=== PATIENT | male | born 1955 | race Caucasian/White ===

== ENCOUNTER 2016-11-15 06:02 | Inpatient (IN) | payer BC ==
--- NOTE | 2016-10-07 16:25 | HP ---
THIS REPORT WILL BE OVER 30 DAYS OLD AT TIME OF ADMISSION REQUIRING AN UPDATED HISTORY PREOPERATIVE HISTORY AND PHYSICAL: DATE OF ADMISSION: 11/15/16 PROCEDURE: The patient is scheduled for right total knee replacement on to be done by Dr. Pierre Wooten. 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 He has tried multiple conservative treatments for this with no effective result and is now prepared to have right total knee replacement. PAST MEDICAL HISTORY: Includes bilateral inguinal hernia repair in 2006; history of acid reflux; mild hyperlipidemia; sleep apnea for which he uses CPAP ; psoriasis; long-standing venous insufficiency in the lower extremities, left greater than right; he also has a history suggestive of mild reactive airways disease. MEDICATIONS: Include: 1. Albuterol inhaler p.r.n. for wheezing. 2. Omeprazole 20mg b.i.d. 3. Ibuprofen p.r.n. for joint pain. 4. MiraLAX 17 g per day p.r.n. ALLERGIES: None. FAMILY HISTORY: Father had Alzheimer's disease and hyperlipidemia. Mother, aortic stenosis and coronary artery disease. Paternal grandmother had diabetes. 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 The patient is a nonsmoker and rarely drinks alcohol. REVIEW OF SYSTEMS: Primarily he is bothered by osteoarthritis symptoms in both knees, chronic lower extremity edema especially on the left, and some mild acid reflux symptoms. He specifically denies any chest pain, palpitation, dizzy spell, or dyspnea on exertion. PHYSICAL EXAMINATION VITAL SIGNS: Blood pressure 130/72, weight 255 pounds, pulse 70 and regular. HEENT: Unremarkable. NECK: No masses. No lymphadenopathy. Normal carotids without bruits. LUNGS: Clear other than very minimal wheezing at the end of forced expiration. HEART: Regular rhythm. Normal S1, S2. No murmurs, gallops, extra sounds, or JVD. ABDOMEN: Soft, nontender. No masses or organomegaly. BACK: No CVA tenderness. EXTREMITIES: He has obvious bony changes of osteoarthritis in the knees. In the left lower extremity, he has changes of chronic venous stasis dermatitis, but no evidence of active skin breakdown. There is 1+ edema at the ankles bilaterally. NEUROLOGIC: Intact. SKIN: Shows some changes of venous stasis dermatitis and scattered lesions of psoriasis mainly involving fingernails. IMPRESSION: Osteoarthritis of the knees. He is an acceptable medical risk for anesthesia and surgery for right total knee replacement. [id number]/[facility] #: [id number] MTDD
--- NOTE | 2016-11-03 15:23 | HP ---
HISTORY AND PHYSICAL: DATE OF OFFICE VISIT: 11/03/16 DATE OF ADMISSION/SURGERY: 11/15/16 ATTENDING: Pierre Wooten MD PROCEDURE: Right total knee arthroplasty. CHIEF COMPLAINT: History and physical for right total knee replacement. 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 The patient has recently failed all conservative treatments. He is now having pain almost constantly and feels that this has been impacting his activities of daily living. He states he has been having trouble walking, doing stairs, and just getting around. He is wishing to pursue elective surgery. The patient also states that he did have a flare-up of gout about a week ago and that had since resolved on its own. PAST MEDICAL HISTORY: 1. Sleep apnea. 2. Untreated psoriasis. 3. Rosacea. 4. GERD. 5. Gout. PAST SURGICAL HISTORY: 1. Vascular repair for left lower extremity ulcer, date unknown, within the past 5 years. 2. Triple hernia repair, date unknown, 10 to 15 years ago. 3. Inguinal hernia repair, date unknown, second grade. MEDICATIONS: 1. Omeprazole 20 mg b.i.d. 2. Probiotic. 3. Multivitamin. 4. Ginkgo biloba. 5. Fish oil. 6. Glucosamine plus chondroitin. 7. Ibuprofen 800 mg. 8. MiraLAX. 9. Metronidazole topical cream. ALLERGIES: No known drug allergies. FAMILY MEDICAL HISTORY: Grandmother on father's side: Diabetes. Father: Myasthenia gravis, hypercholesterolemia, and atrial fibrillation. Mother: Heart disease, hyperlipidemia, TIA, stroke, and hypertension. SOCIAL HISTORY: The patient admits to drinking a bottle of beer a week. The patient denies any history of cigarette smoking or illicit drug use. REVIEW OF SYSTEMS: General: Negative for fevers, chills, or night sweats. No known anesthesia problems. HEENT: Denies any headache, lightheadedness, or syncopal episodes. Integumentary: Denies any abrasions, lesions, or open wounds. Cardiothoracic: Denies any chest pain, palpitations, or edema. Pulmonary: Denies any shortness of breath with exertion, chronic cough, or COPD. GI: Negative for nausea, vomiting, diarrhea, or constipation. : Negative for nocturia, urinary frequency, urinary urgency, history of UTIs, or kidney issues. Musculoskeletal: Positive for right knee and left knee pain. Negative for chronic or intermittent back pain or fractures. Neuro: Negative for paresthesias, numbness, history of seizure, stroke, or epilepsy. Endocrine : Negative for diabetes or thyroid issues. Hematologic: Negative for easy bruising, anemia, excessive bleeding, or history of DVT. PHYSICAL EXAMINATION GENERAL: He is a well-developed, well-nourished 61-year-old male, in no acute distress. HEENT: Normocephalic, atraumatic. Pupils are equal, round, reactive to light and accommodation. Extraocular movements are intact. NECK: Supple with no palpable lymph nodes. PULMONARY: Lungs are clear to auscultation with no wheezes, rales, or rhonchi. CARDIO: Regular rate and rhythm with normal S1, S2. No appreciable S3 or S4. No murmurs, rubs, or gallops. No noticeable edema. ABDOMEN: Positive bowel sounds in all 4 quadrants. Soft and nontender to palpation in all 4 quadrants. NEUROLOGICAL: The patient is awake and oriented x3. Cranial nerves II through XII are grossly intact. MUSCULOSKELETAL: Right lower extremity: The patient is able to fully flex and extend. Full extension is to 0 degrees and flexion to 100 degrees with some discomfort. The patient has no instability with varus or valgus stress test. Strength is 4/5 with pain. The patient has a 2+ dorsalis pedis and posterior tibialis pulses and sensation intact. Left lower extremity: Able to fully extend to 0 degrees and flex to 110 degrees with some discomfort. Again, no instability with varus or valgus stress. Strength is 4/5, posterior tibialis and dorsalis pedis pulses are 2+. Sensation is intact to light touch. DIAGNOSTIC STUDIES/LAB DATA: X-rays of the right knee were obtained today and reviewed by me. [id number] arthritis was noted. IMPRESSION: Arthritis of the right knee. PLAN/RECOMMENDATIONS: The patient is scheduled to undergo a right total knee arthroplasty. He will return to the office 4 weeks postop. He will have aimee removed 2 weeks postop by VNS. A prescription for Percocet 5/325 mg was e-scribed to the patient's pharmacy for postoperative pain management. The patient expressed interest on using only MiraLAX after the procedure to be coupled with his probiotic while he was in the hospital. He will be discharged home unless otherwise needed. HOOD ALBERTS [id number]/[facility] #: [id number] [place]
[~2016-11-15 06:02] MED LIST: Buffered Lidocaine 1% SYR 3ML* 3 ML/SYR SYRINGE INTRADERM ONE
[2016-11-15] MEDS ORDERED: ceFAZolin 2 GM PREMIX (*) 2 GM/50 ML BAG IVPB ONE (06:11)
[2016-11-15] MEDS ORDERED: Bupivacaine 0.25% EPI 200,000* 30 ML SDV ONE ×2 (06:52→06:57)
[2016-11-15] MEDS ORDERED: Midazolam* 1 MG/ML 2 ML VIAL (2 MG) ONE ×2 (07:18→09:14)
[2016-11-15] MEDS ORDERED: fentaNYL* 50 MCG/ML 2 ML VIAL (100 MCG VIAL) ONE (07:18)
[2016-11-15] MEDS ORDERED: Midazolam* 1 MG/ML 5 ML VIAL (5 MG) ONE (07:37)
[2016-11-15] MEDS ORDERED: Morphine PF AMP (0.5MG/ML)* 5 MG/10 ML AMP ONE (07:38)
[2016-11-15] MEDS ORDERED: diPHENhydraMINE IV* 50 MG/ML 1 ml VIAL (BENADRYL) ONE (07:55)
[2016-11-15] MEDS ORDERED: Ondansetron INJ* 2 MG/ML VIAL IV PRN ×3 (08:12→23:46)
[2016-11-15] MEDS ORDERED: DiMENhydriNATE IV* 50 MG/ML VIAL IV PUSH PRN (08:12)
[2016-11-15] MEDS ORDERED: fentaNYL* 50 MCG/ML 2 ML VIAL (100 MCG VIAL) IV PRN (08:12)
[2016-11-15] MEDS ORDERED: Levalbuterol 0.63MG/3ML NEB INH PRN (08:12)
[2016-11-15] MEDS ORDERED: Nalbuphine* 20 MG/ML 1 ML VIAL IV PRN (08:18)
[2016-11-15] MEDS ORDERED: HYDROcodone/ACETAMIN 5-325 MG* 1 TAB PO PRN ×2 (08:18)
[2016-11-15] MEDS ORDERED: PROCHLORPERAZINE INJ 5 MG/ML 2 ML VIAL IV PRN (08:18)
[2016-11-15] MEDS ORDERED: diPHENhydraMINE IV* 50 MG/ML 1 ml VIAL (BENADRYL) IV PRN ×2 (08:18→23:46)
[2016-11-15] MEDS ORDERED: Naloxone* 0.4 MG/ML 1 ML VIAL IV PRN (08:18)
[2016-11-15] MEDS ORDERED: Scopolamine PATCH Remove* 1 NOTE MISC PATCH OFF SCH (09:00)
[2016-11-15] MEDS ORDERED: Scopolamine 1.5 mg* PATCH TRANSDERM SCH (09:00)
[2016-11-15] MEDS ORDERED: Bupivacaine 0.5% SDV PF* 30 ML VIAL ONE (09:07)
[2016-11-15] MEDS ORDERED: Ketorolac INJ* 30 MG/ML 1 ML VIAL ONE (09:08)
[2016-11-15] MEDS ORDERED: Bisacodyl SUPP* 10 MG SUPP PR PRN (10:14)
[2016-11-15] MEDS ORDERED: Morphine INJ* 10 MG/ML 1 ML CARPUJECT IV PRN (10:14)
[2016-11-15] MEDS ORDERED: oxyCODONE/Acetamin 5/325 MG* TAB PO PRN (10:14)
--- NOTE | 2016-11-15 11:02 | RAD ---
HISTORY: Status post right total knee arthroplasty COMPARISONS: November 03, 2016 VIEWS: 2, Frontal and lateral views of the right knee FINDINGS: BONE DENSITY: Normal. BONES: The patient is status post right knee arthroplasty. There is no hardware failure or osteolysis. JOINTS: The patient is status post right knee arthroplasty ALIGNMENT: There is no dislocation. SOFT TISSUES: There is post surgical change to the soft tissues OTHER FINDINGS: None. IMPRESSION: STATUS POST RIGHT KNEE ARTHROPLASTY
[2016-11-15] MEDS ORDERED: Acetaminophen TAB* 325 MG ONE (11:19)
[2016-11-15] MEDS: Acetaminophen TAB* 325 MG PO SCH ×4 (11:20→20:37)
[2016-11-15] MEDS ORDERED: Metronidazole (TOPICAL)(NF) 45 GM TUBE TOPICAL PRN (14:00)
[2016-11-15] MEDS ORDERED: Scopolamine 1.5 mg* PATCH TRANSDERM PRN (14:02)
[2016-11-15] MEDS: ceFAZolin 1 GM in Dextrose (*) 1 GM/50 ML BAG IVPB SCH ×2 (15:12→22:32)
[2016-11-15] MEDS: Ketorolac INJ* 30 MG/ML 1 ML VIAL IV PRN (15:13)
[2016-11-15] MEDS ORDERED: Warfarin TAB(*) 10 MG PO ONE (17:00)
[2016-11-15] MEDS: Polyethylene Glycol 3350* 17 GM PACKET PO PRN (20:34)
[2016-11-15] MEDS: Docusate CAP* 100 MG PO SCH (20:36)
[2016-11-15] MEDS: D5W 1/2 NS 1000 ML BAG* 1,000 ML IV SCH (20:44)
[2016-11-15] MEDS: Magnesium Hydroxide LIQ* 30 ML UDC PO SCH (20:51)
--- NOTE | 2016-11-15 20:56 | OP ---
DATE OF OPERATION: 11/15/16 - ROOM #347 DATE OF : 51 SURGEON: Pierre Wooten MD LABORER PIPELINE: Jayshree Rios RPA ANESTHESIOLOGIST: Dr. Locke ANESTHESIA: Spinal and sedation. PRE-OP DIAGNOSIS: Osteoarthritis, right knee. POST-OP DIAGNOSIS: Osteoarthritis, right knee. OPERATIVE PROCEDURE: Right total knee arthroplasty. INDICATIONS: Mr. Brar is a 61-year-old male with a long history of troubles with osteoarthritis of both of his knees. Anti-inflammatories and injections had worked well previously, but he has been having more and more pain, limitations, and is decreasing what he normally does because of the knees. I discussed with him that a total knee arthroplasty should work well to decrease his pain and improve his function. Risks of surgery such as infection, scar formation, stiffness, DVT, and pulmonary embolism, and hardware failure and the need for revision surgery were some of the risks discussed. He had been declared medically optimized and wished to proceed. ESTIMATED BLOOD LOSS: Less than 50 cc. COMPLICATIONS: None. HARDWARE: Phyllis Persona #9 femur, G tibia, 14-mm polyethylene, 35-mm all polyethylene patellar button. DESCRIPTION OF PROCEDURE: The patient was brought to the OR and spinal anesthesia was introduced. Mendez catheter was placed. Tourniquet was placed over the proximal right thigh and was used during the case. Total tourniquet time would be approximately 75 minutes. Right knee was prepped and then draped. Esmarch was used to exsanguinate the leg and the tourniquet was raised. Midline incision was made beginning 2 to 3 cm above the superior pole of the patella and carried downwards towards the medial side of the tibial tubercle. Incision was carried down through the skin and subcutaneous tissues. Small bleeders encountered were ligated using electrocautery. Extensor mechanism was exposed and a sharp parapatellar arthrotomy was made. Clear yellowish joint fluid was encountered. Fat pad was sharply excised and the soft tissues were sharply elevated from the medial side of the tibia. Patella measured a little over 25 mm in thickness and a nice 10-mm cut was taken. Patella was then easily subluxated laterally and the knee was flexed up. Nice exposure of the distal femoral condyles was obtained. Step drill was used to open the femoral canal and the intramedullary guide was placed. Guide was adjusted until it was parallel with the epicondyles and then pinned into place. Distal femoral cutting guide was then pinned into place and intramedullary guide was removed. Distal femoral cut was taken and it appeared nice cut was obtained. Femur was sized and he sat nicely for a 9. Holes were drilled and using a top drill hole to make sure we did not notch, this did not clear the anterior cortex. This was moved up in 2-mm increments and after moving this up 3 times, the drill came right on the anterior cortex. Cutting guide was then pinned into place and the anterior and posterior femoral cuts followed by the chamfer cuts were taken. Attention was turned to the proximal tibia. Step drill was used to open the tibial canal and the intramedullary guide was placed. Outrigger was assembled and adjusted until it appeared would take 2 mm from the very worn medial side. Cutting guide was pinned into place and a nice tibial cut was obtained. Spacer blocks were placed and 10 and 12 were loose, while the 14 was relatively quite snug. With the 12, however, it could be seen that with bringing him out into full extension that the tibial cut was perfect as the drop sigrid came right along the anterior spine of the tibia but on the femur, I could stand to take another 2 mm from the femoral side. Free hand cut was taken and then with a 14 block, he came out nicely into full extension and easily flexed. Proximal tibia was sized and a G seemed to sit quite nicely. Proximal tibia was drilled and then punched. Osteophytes were taken down from the medial side of the tibia using a rongeur. Attention was returned to the femur. 9 was placed after the chamfer cuts were recut using the cutting guide. Stud holes were also drilled and a notch cut was finished using the notch cut finishing guide. Trial instrumentation was placed and it came out nicely into full extension, flexed nice and easily and was stable throughout. Patellar tracking even without the button was also quite good. Patella sized in the 35 fit best. Osteophytes were taken down from the edges of the patella and holes were drilled. Trial was snapped into place and he had the same wonderful motion and stability. Trial instrumentation was removed and the knee was copiously pulse lavaged. Cement was being prepared. Glass unfortunately had broken so a second batch of cement had to be prepared as well. Tibia followed by femur and patella were all cemented into place. Excess cement was removed and the cement was allowed to harden. He was then trialed with a 14 spacer and again had the same wonderful motion and stability. The knee was again searched for hardened cement and few small pieces were found. The knee was again copiously pulse lavaged and a 14 polyethylene was then snapped into place. The knee was again pulse lavaged and the parapatellar arthrotomy was repaired using interrupted #1 Vicryl sutures. Tourniquet was let down and few small bleeders were ligated using electrocautery. Subcutaneous tissues were approximated with 2-0 Vicryl. Skin was closed using aimee. Sterile dressing and a Cryo/Cuff were applied in the OR. The patient was then awakened and stable on transfer to the recovery room. [id number]/[facility] #: [id number] [place]
[2016-11-15] MEDS ORDERED: Acetaminophen TAB* 325 MG PO PRN (23:46)
[2016-11-15] MEDS ORDERED: Ondansetron TAB* 4 MG PO PRN (23:46)
[2016-11-16] MEDS: oxyCODONE TAB* 5 MG TAB PO PRN ×5 (00:03→21:48)
[2016-11-16] MEDS: Ketorolac INJ* 30 MG/ML 1 ML VIAL IV PRN (03:47)
[2016-11-16] MEDS: D5W 1/2 NS 1000 ML BAG* 1,000 ML IV SCH (04:58)
[2016-11-16] MEDS: ceFAZolin 1 GM in Dextrose (*) 1 GM/50 ML BAG IVPB SCH (06:19)
[2016-11-16] MEDS: oxyCODONE/Acetamin 5/325 MG* TAB PO PRN ×4 (06:34→19:18)
[2016-11-16 06:49] LABS: Hematocrit 35 % (42-52); Hemoglobin 11.8 g/dl (14.0-18.0)
[2016-11-16 07:12] LABS: Calcium 8.1 mg/dL (8.6-10.3); EGFR Non-African American 66.9 (>60); Potassium 4.6 mmol/L (3.5-5.0)
--- NOTE | 2016-11-16 08:54 | PN ---
Progress Note - Progress Note SOAP: Subjective: []Patient seen OOB in chair. Just worked with therapy. Denies SOB, CP or dizziness. Has had on and off hiccups and had trouble sleeping last night. Requesting increase of benadryl to 50 mg. Objective: [] Vital Signs Temp 99.4 F 11/16/16 08:05 Pulse 65 11/16/16 08:05 Resp 18 11/16/16 08:05 BP 135/70 11/16/16 08:05 Pulse Ox 94 11/16/16 08:05 Intake & Output 11/15/16 11/16/16 11/16/16 18:59 06:59 18:59 Intake Total 2450 2833 Output Total 530 350 Balance 1920 2483 Intake: IV Fluids 1850 1965 D5W 1/2 NS 1965 LR 1800 NS 50ML, Cefazolin 2G 50 IVPB 108 Kefzol 108 Oral 600 760 Output: Mendez 500 350 Residual 30 Mendez 16 Fr 30 Laboratory Results - last 24 hr 11/16/16 11/16/16 11/16/16 06:02 06:02 06:02 Hgb 11.8 L Hct 35 L INR (Anticoag Therapy) 1.18 H Sodium 136 Potassium 4.6 Chloride 104 Carbon Dioxide 29 Anion Gap 3 BUN 20 Creatinine 1.11 Est GFR ( Amer) 86.0 Est GFR (Non-Af Amer) 66.9 BUN/Creatinine Ratio 18.0 Glucose 120 H Calcium 8.1 L Right knee PHOEBE is C/D/I calf non tender and soft +DF/PF neuro intact Assessment: []s/p Right total knee arthroplasty POD #1 Plan: []PT- WBAT Coumadin with heparin bridge Benadryl 50 mg po q hs prn insomnia
[2016-11-16] MEDS: Magnesium Hydroxide LIQ* 30 ML UDC PO SCH ×2 (09:06→22:01)
[2016-11-16] MEDS: Omeprazole CAP* 20 MG PO SCH (09:06)
[2016-11-16] MEDS: Docusate CAP* 100 MG PO SCH ×2 (09:06→21:47)
[2016-11-16] MEDS: Vitamin THERAPEUTIC TAB PO SCH (11:09)
[2016-11-16] MEDS: Heparin VIAL(*) 5000 UNITS/ML VIAL (FIVE THOUSAND) SUBCUT SCH ×2 (11:09→21:50)
[2016-11-16] MEDS: Lactobacillus Acidophilu (GG)* 1 CAP CAP PO SCH (11:09)
[2016-11-16] MEDS ORDERED: Warfarin TAB(*) 4 MG PO ONE (17:00)
[2016-11-16] MEDS: diPHENhydraMINE PO* 50 MG PO PRN (22:35)
[2016-11-17] MEDS: oxyCODONE/Acetamin 5/325 MG* TAB PO PRN ×3 (01:47→17:16)
[2016-11-17] MEDS: oxyCODONE TAB* 5 MG TAB PO PRN ×3 (05:21→21:04)
[2016-11-17 07:43] LABS: Hematocrit 36 % (42-52); Hemoglobin 11.9 g/dl (14.0-18.0)
[2016-11-17] MEDS: Vitamin THERAPEUTIC TAB PO SCH (07:46)
[2016-11-17] MEDS: Heparin VIAL(*) 5000 UNITS/ML VIAL (FIVE THOUSAND) SUBCUT SCH (07:46)
[2016-11-17] MEDS: Lactobacillus Acidophilu (GG)* 1 CAP CAP PO SCH (07:46)
[2016-11-17] MEDS: Docusate CAP* 100 MG PO SCH ×2 (07:46→21:04)
[2016-11-17] MEDS: Magnesium Hydroxide LIQ* 30 ML UDC PO SCH ×2 (07:46→21:05)
[2016-11-17] MEDS: Omeprazole CAP* 20 MG PO SCH (07:46)
--- NOTE | 2016-11-17 09:41 | PN ---
Progress Note - Progress Note SOAP: Subjective: []Patient seen at bedside. present. Pain managed. Slept better last night with 50 mg benadryl. Denies, CP, SOB or dizziness. Objective: [] Vital Signs Temp 99.0 F 11/17/16 07:36 Pulse 69 11/17/16 07:36 Resp 18 11/17/16 08:55 BP 126/65 11/17/16 07:36 Pulse Ox 94 11/17/16 08:00 Intake & Output 11/16/16 11/17/16 11/17/16 18:59 06:59 18:59 Intake Total 1198 1040 Output Total 500 1000 0 Balance 698 40 0 Intake: IV Fluids 438 D5W 1/2 NS 438 Oral 760 1040 Output: Urine 250 1000 0 Mendez 250 Laboratory Results - last 24 hr 11/17/16 11/17/16 07:09 07:09 Hgb 11.9 L Hct 36 L INR (Anticoag Therapy) 1.88 H Right knee dressing dry, removed Incision benign without drainage mild right calf ecchymosis, non tender Adrianna's negative +DF/PF neuro intact Assessment: []s/p Right total knee arthroplasty POD #2 Plan: []PT/OT WBAT Right LE Coumadin with heparin bridge, 4mg today Home
[2016-11-17] MEDS ORDERED: Warfarin TAB(*) 4 MG PO ONE (17:00)
[2016-11-17] MEDS: diPHENhydraMINE PO* 50 MG PO PRN (21:04)
[2016-11-17] MEDS: Polyethylene Glycol 3350* 17 GM PACKET PO PRN (21:04)
[2016-11-18] MEDS: oxyCODONE/Acetamin 5/325 MG* TAB PO PRN ×3 (03:10→13:41)
[2016-11-18 07:21] LABS: Hematocrit 36 % (42-52); Hemoglobin 11.8 g/dl (14.0-18.0)
[2016-11-18] MEDS: Omeprazole CAP* 20 MG PO SCH (07:22)
[2016-11-18] MEDS: Docusate CAP* 100 MG PO SCH (08:08)
[2016-11-18] MEDS: Lactobacillus Acidophilu (GG)* 1 CAP CAP PO SCH (08:08)
[2016-11-18] MEDS: Magnesium Hydroxide LIQ* 30 ML UDC PO SCH (08:08)
[2016-11-18] MEDS: Vitamin THERAPEUTIC TAB PO SCH (08:08)
--- NOTE | 2016-11-18 09:49 | PN ---
Progress Note - Progress Note SOAP: Subjective: []Patient seen OOB in chair, doing well. Ready for discharge today. Objective: [] Vital Signs Temp 98.0 F 11/18/16 07:42 Pulse 66 11/18/16 07:42 Resp 18 11/18/16 08:08 BP 128/72 11/18/16 07:42 Pulse Ox 97 11/18/16 08:00 Intake & Output 11/17/16 11/18/16 11/18/16 18:59 06:59 18:59 Intake Total 540 900 Output Total 1300 1050 0 Balance -760 -150 0 Intake: Oral 540 900 Output: Urine 1300 1050 0 Laboratory Results - last 24 hr 11/18/16 11/18/16 07:09 07:09 Hgb 11.8 L Hct 36 L INR (Anticoag Therapy) 1.94 H Right knee dressing with scant old dried bloody drainage on proximal aspect of PHOEBE calf NT and soft neuro intact +DF/PF Assessment: []s/p Right total knee arthroplasty POD#3 Plan: []PT/OT WBAT Discharge home today follow up 3-[address] Wooten
[2016-11-18 12:37] VITALS: BP 121/60
--- NOTE | 2016-11-19 01:26 | DS ---
DISCHARGE SUMMARY: DATE OF ADMISSION: 11/15/16 DATE OF DISCHARGE: 11/18/16 ATTENDING PHYSICIAN: Dr. Pierre Wooten. ADMISSION DIAGNOSIS: Osteoarthritis, right knee. DISCHARGE DIAGNOSIS: Osteoarthritis, right knee. SURGERY PERFORMED: Right total knee arthroplasty. HOSPITAL COURSE: The patient is a 61-year-old male with longstanding history of osteoarthritis in both of his knees. Initially, anti-inflammatories and cortisone injections had worked, but then as time went on, he had less relief from these treatments. Due to the fact that he failed conservative measures, he elected to proceed with surgical intervention and was taken to the operating room under the care of Dr. Pierre Wooten for the aforementioned procedure on the date of 11/15/16. He tolerated the procedure well and he left the operating room in stable condition. Postoperatively, he progressed satisfactorily with physical therapy and occupational therapy goals. He had no postoperative complications other than some mild insomnia. His pain was well managed with oral Percocet and was on heparin and Coumadin postoperatively for DVT prophylaxis. The patient mastered his PT/OT goals and it was felt he was stable medically and orthopedically for discharge to home on the date of . CONDITION ON DISCHARGE: The patient is alert and oriented x3 in no acute distress. He has no calf tenderness. Homans sign is negative. His neurovascular status is intact. His dressings on his right knee have been changed and there is no evidence of increased drainage, erythema, or infection. PLAN: Discharge to home today. He may shower in 2 days. He is sent home with 2 mg Coumadin prescription, recommending he take 4 mg today, 2 mg on Tuesday, 2 mg on Tuesday, and 2 mg on Tuesday. He will have repeat INR drawn Tuesday with subsequent dosages to follow. He has Percocet medication that he picked up prior to his surgery available to him at home. We recommend a followup in roughly [address] Wooten at around the 2-week time frame from this date. He will be seen by home healthcare for which his aimee will be removed. He may shower in 2 days. HOOD BARBOUR [id number]/[facility] #: [id number] [facility]
== END 2016-11-18 14:15 | disposition home or self-care (01) | DRG 302 ==
LOC: AA 06:02 → SSU 10:14
PROVIDERS: ADMIT Orthopaedic Surgery; ATTEND Orthopaedic Surgery
PROC: 0SRC0J9 Replacement of Right Knee Joint with Synthetic Substitute, Cemented, Open Approach (ICD-10-PCS; principal; 2016-11-15 07:30)
DX: M17.0 Bilateral primary osteoarthritis of knee (principal); E78.5 Hyperlipidemia, unspecified; G47.00 Insomnia, unspecified; G47.33 Obstructive sleep apnea (adult) (pediatric); L40.9 Psoriasis, unspecified; K21.9 Gastro-esophageal reflux disease without esophagitis; M10.9 Gout, unspecified; I87.2 Venous insufficiency (chronic) (peripheral); J45.909 Unspecified asthma, uncomplicated; M25.761 Osteophyte, right knee; M54.30 Sciatica, unspecified side; G89.29 Other chronic pain; Z82.3 Family history of stroke; Z83.3 Family history of diabetes mellitus; Z82.69 Family history of other diseases of the musculoskeletal system and connective tissue; Z82.49 Family history of ischemic heart disease and other diseases of the circulatory system; Z82.0 Family history of epilepsy and other diseases of the nervous system; L29.9 Pruritus, unspecified
CPT/HCPCS: 36415; 80048; 85014; 85018; 85610; 88305; 88311; A9270-GY; C1776; J0690; J1200; J1644; J1885; J2250; J3010

== ENCOUNTER 2017-09-15 11:26 | Emergency (ER) | payer BC ==
[2017-09-15 11:40] VITALS: BP 114/68
--- NOTE | 2017-09-15 12:22 | UC ---
Respiratory Complaint HPI - HPI Summary HPI Summary: 62 y/o WM presents with a dry cough and sinus congestion for the last 3 weeks. 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 He has also been using his 's albuterol inhaler, which dose give him good relief - but only for a short time. He denies fever, chills, SOB, chest pain, abdominal pain, n/v/d/c - History of Current Complaint Chief Complaint: UCRespiratory Stated Complaint: SINUS CONGESTED,COUGH,BACK PAIN Time Seen by Provider: 09/15/17 12:21 Hx Obtained From: Patient Onset/Duration: Gradual Onset Timing: Constant Severity Initially: Moderate Severity Currently: Moderate Pain Intensity: 6 Pain Scale Used: 0-10 Numeric Character: Cough: Nonproductive - Allergies/Home Medications Allergies/Adverse Reactions: Allergies Allergy/AdvReac Type Severity Reaction Status Date / Time No Known Allergies Allergy Verified 09/15/17 11:34 PMH/Surg Hx/FS Hx/Imm Hx Previously Healthy: Yes - Surgical History Surgical History: Yes Surgery Procedure, Year, and Place: HIATAL HERNIA REPAIR AT AGE 7. HIATAL HERNIA REPAIR - 10 YEARS AGO knee replaced r - Social History Occupation: Employed Full-time Lives: With Family Alcohol Use: Weekly Alcohol Amount: 3 PER WEEK Substance Use Type: None Smoking Status (MU): Never Smoked Tobacco - Immunization History Most Recent Influenza Vaccination: none Most Recent Tetanus Shot: none Most Recent Pneumonia Vaccination: none Review of Systems Constitutional: Negative Skin: Negative Eyes: Negative ENT: Nasal Discharge, Sinus Congestion, Sinus Pain/Tenderness Respiratory: Cough Cardiovascular: Negative Gastrointestinal: Negative All Other Systems Reviewed And Are Negative: Yes Physical Exam Triage Information Reviewed: Yes Appearance: Well-Appearing, Well-Nourished Vital Signs: Initial Vital Signs Temp 96.3 F 09/15/17 11:36 Pulse 58 09/15/17 11:36 Resp 20 09/15/17 11:36 BP 114/68 09/15/17 11:36 Pulse Ox 100 09/15/17 11:36 Vital Signs Reviewed: Yes Eyes: Positive: Conjunctiva Clear. Negative: Conjunctiva Inflamed, Discharge ENT: Positive: Hearing grossly normal, Pharynx normal, Nasal congestion, Nasal drainage, TMs normal, Sinus tenderness, Uvula midline. Negative: Pharyngeal erythema, TM bulging, TM dull, TM red, Tonsillar swelling, Tonsillar exudate, Muffled voice, Hoarse voice Neck: Positive: Supple, Nontender, No Lymphadenopathy Respiratory: Positive: Chest non-tender, Lungs clear, Normal breath sounds, No respiratory distress, No accessory muscle use Cardiovascular: Positive: RRR, No Murmur, Pulses Normal Neurological: Positive: Alert Psychological: Positive: Age Appropriate Behavior Skin: Negative: rashes UC Diagnostic Evaluation - Laboratory O2 Sat by Pulse Oximetry: 100 Respiratory Course/Dx - Course Course Of Treatment: Suspect sinusitis and bronchitis. Zpak, tessalon, and guaifenesin with codeine at bedtime. - Differential Dx/Diagnosis Differential Diagnosis/HQI/PQRI: Bronchitis, Influenza, Lower Resp Infection, Sinusitis Provider Diagnoses: Bronchitis. Sinusitis Discharge - Discharge Plan Condition: Stable Disposition: HOME Prescriptions: Azithromycin TAB* [Zithromax TAB (Z-MICKIE) 250 mg #6 tabs] 2 tab PO .TODAY, THEN 1 DAILY #1 mickie Benzonatate CAP* [Tessalon 100 MG CAP*] 100 mg PO TID PRN #30 cap PRN Reason: Cough Guaifenesin-Codeine [G Tussin AC 100-10 mg/5Ml] 5 ml PO BEDTIME PRN #35 ml MDD 5mL PRN Reason: Cough Patient Education Materials: Acute Bronchitis (ED) Referrals: Mariely Espinal MD [Primary Care Provider] - Additional Instructions: If you develop a fever, shortness of breath, chest pain, new or worsening symptoms - please call your PCP or go to the ED.
== END 2017-09-15 13:15 | disposition home or self-care (01) ==
LOC: UCEAST 11:26
DX: J40 Bronchitis, not specified as acute or chronic (principal); J32.9 Chronic sinusitis, unspecified; Z72.89 Other problems related to lifestyle
CPT/HCPCS: 99212; G0463

== ENCOUNTER 2017-12-26 09:10 | Inpatient (IN) | payer BC ==
--- NOTE | 2017-12-20 08:13 | HP ---
H&P (Free Text) History and Physical: CC: Left knee pain. HPI: The patient is a pleasant 62-year-old male who underwent a right total knee replacement on 11/15/2016. He has been doing well from this, however has had increased pain on the left side and has failed conservative treatments such as NSAIDs, physical therapy and injections. He has elected to undergo a left total knee arthroplasty on 12/26/[address] Wooten. MEDICATIONS: Ibuprofen 800 mg b.i.d. ALLERGIES: No known drug allergies. PAST MEDICAL HISTORY: 1) Osteoarthritis. 2) Psoriasis. 3) GERD. PAST SURGICAL HISTORY: 1) Right total knee arthroplasty on 11/15/2016. 2) Inguinal hernia repair x2. 3) Vein stripping, left leg, approximately five years ago. ROS: GENERAL: Denies weight gain, weight loss, lightheadedness, dizziness, difficulty with anesthesia. Positive for intentional weight loss. HEENT: No headaches, seizures, stroke, or history of epilepsy. CARDIAC: Denies chest pain, heart palpitations, history of MIs. LUNGS: Denies cough, COPD, asthma. GI: Denies nausea, vomiting, constipation or diarrhea. : Negative for urinary frequency or urgency, difficulty with urination, urinary tract infections, or kidney stones. INTEGUMENT: No difficulty with wound healing. No open wounds or sores. NEUROLOGIC: Denies any numbness or tingling. ENDOCRINE: Negative for diabetes or thyroid disorders. HEMATOLOGIC: No history of anemia or DVT. INFECTIOUS DISEASE: Denies MRSA, hepatitis C, or HIV. MUSCULOSKELETAL: Positive for general arthritis. Positive for left knee pain. Date: 12/14/2017 Was the patient queried about smoking behavior? Yes No Does the patient currently smoke? Smoking: Patient has never smoked. Vitals: Ht: 73.75" Wt: 250lb BP: 116/70 Resp: 20 T: 97.7 Pain Level: 0 BMI: 32.3 EXAM: GENERAL: Well appearing, in no acute distress, alert and oriented, appears stated age. CARDIAC: Regular rate and rhythm. No murmurs, gallops or rubs. LUNGS: Clear to auscultation bilaterally. No crackles, rhonchi or wheezes. ABDOMEN: Soft, nontender, nondistended. Negative CVA tenderness bilaterally. HEENT: Normocephalic, atraumatic. Trachea midline. MUSCULOSKELETAL: Left knee with range of motion 0-130 degrees with +1 pitting edema of the lower extremities. Negative Homans sign. Positive dorsiflexion and plantar flexion bilaterally. Sensation intact to light touch in bilateral lower extremities. STUDIES: X-rays of the left knee obtained on 11/16/2016, show moderate to advanced osteoarthritis around the medial and patellar joint spaces of the left knee. ASSESSMENT: End-stage osteoarthritis of the left knee. PLAN: The patient has elected to undergo a left total knee arthroplasty with Dr. Wooten on 12/26/2017. He will be following up with his primary doctor for medical clearance later this week. He had no questions or concerns in regards to the procedure; however, he is requesting a longer-acting pain medicine at night to help with sleeping as he had difficulty with this last time. Percocet was sent for the patient for short-acting medication during the day. The patient will likely recover at his home. Assessment #1: Hx M17.12 Unilateral primary osteoarthritis, left knee Care Plan: Follow Up : Follow up:
[~2017-12-26 09:10] MED LIST changes: +Acetaminophen IV 1GM/100ML * 1,000 MG/100 ML VIAL IVPB ONE; +Buffered Lidocaine 0.9% SYRIN* 5 ML/SYR SYRINGE INTRADERM ONE; -Buffered Lidocaine 1% SYR 3ML* 3 ML/SYR SYRINGE INTRADERM ONE; +Dexamethasone IV* 4 MG/ML 1 ML (4 MG) IV SLOW PU ONE; +Famotidine TAB* 20 MG PO ONE; +Gabapentin CAP(*) 300 MG PO ONE; +celeCOXIB CAP* 200 MG PO ONE
--- OUTSIDE RECORDS SUMMARY | 2017-12-26 09:20 | XMS REPORT ---
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 Active Onset: 02/02/2017 Aftercare following joint replacement Pierre Wooten M.D. Active surgery Social History Type Date Description Comments Smoking Patient has never smoked Allergies, Adverse Reactions, Alerts Date Description Reaction Status Severity Comments 04/05/2013 NKDA active Medications Medication Date Status Form Strength Qnty SIG Indications Ordering Provider Percocet Active Tablets 5-325mg 60tabs 1-2 tablets Pierre 018 by mouth Je, every 4-6 M.D. hours as needed for pain Warfarin Active Tablets 2mg 60tabs take as Pierre Montelogno 018 directed by Je, office do M.D. not take until after surgery Ibuprofen 200 00/00/0 Active Tablets 200mg 400-600mg Unknown 000 every 6 hours as needed for pain. Warfarin Hx Tablets 2mg 60tabs take as Pierre Montelongo 017 - directed by Je, office MLena 017 Percocet Hx Tablets 5-325mg 60tabs 1 tab by Pierre Lindsey - mouth tid Je, as needed M.Hoa 018 for pain. No Active Hx Pierre Medications 015 - Je, Caro 017 Medications Administered in Office Medication Date Status Form Strength Qnty SIG Indications Ordering Provider Synvisc Or Administered Injection Skye Synvisc-One 015 [place], Injection 1 RPA-C MG Synvisc Or Administered Injection Skye Synvisc-One 015 Alexander, Injection 1 RPA-C MG Synvisc Or Administered Injection Pierre Synvisc-One 015 Je, Injection 1 M.DApple MG Depomedrol Administered Injection Alevism HApple 80MG 014 Shani Iglesias Depomedrol Administered Injection Pierre 80MG Lorna Wooten M.D. Depomedrol Administered Injection Pierre 80MG Lorna Wooten M.D. Vital Signs Date Vital Result Comment 12/14/2017 Height 73.75 inches 6'1.75" Weight 250.00 lb BP Systolic 116 mmHg BP Diastolic 70 mmHg Respiratory Rate 20 /min Body Temperature 97.7 F Pain Level 0 BMI (Body Mass Index) 32.3 kg/m2 11/16/2017 Height 73.75 inches 6'1.75" Heart Rate 57 /min BP Systolic 110 mmHg BP Diastolic 78 mmHg Respiratory Rate 16 /min Body Temperature 97.3 F Pain Level 2 02/02/2017 Height 73.75 inches 6'1.75" Weight 250.00 lb Heart Rate 65 /min BP Systolic 123 mmHg BP Diastolic 78 mmHg Body Temperature 97.2 F BMI (Body Mass Index) 32.3 kg/m2 01/05/2017 Height 74 inches 6'2" Weight 246.00 lb BP Systolic 104 mmHg BP Diastolic 70 mmHg Respiratory Rate 16 /min Body Temperature 97.2 F Pain Level 2 BMI (Body Mass Index) 31.6 kg/m2 11/03/2016 Height 74 inches 6'2" Weight 246.00 lb Heart Rate 76 /min BP Systolic Sitting 138 mmHg BP Diastolic Sitting 86 mmHg Respiratory Rate 16 /min Body Temperature 97.3 F Pain Level 4 BMI (Body Mass Index) 31.6 kg/m2 10/06/2016 Height 74 inches 6'2" Weight 250.00 lb BMI (Body Mass Index) 32.1 kg/m2 10/08/2015 Height 74 inches 6'2" Weight 250.00 lb Pain Level 4 with activity BMI (Body Mass Index) 32.1 kg/m2 08/20/2015 Height 74 inches 6'2" Weight 250.00 lb Pain Level 0 BMI (Body Mass Index) 32.1 kg/m2 08/13/2015 Height 74 inches 6'2" Weight 250.00 lb Pain Level 3 BMI (Body Mass Index) 32.1 kg/m2 08/06/2015 Height 74 inches 6'2" Weight 250.00 lb Pain Level 3 BMI (Body Mass Index) 32.1 kg/m2 07/09/2015 Height 74 inches 6'2" Weight 250.00 lb Pain Level 3 BMI (Body Mass Index) 32.1 kg/m2 11/02/2013 Heart Rate 59 /min BP Systolic 119 mmHg BP Diastolic 83 mmHg 04/05/2013 Height 74 inches 6'2" Weight 250.00 lb Heart Rate 55 /min BP Systolic 132 mmHg BP Diastolic 89 mmHg BMI (Body Mass Index) 32.1 kg/m2 Results Test Date Test Result H/L Range Note CBC No Diff 11/03/2016 White Blood Count 8.5 10^3/uL 3.5-10.8 1 Red Blood Count 4.56 10^6/uL 4.0-5.4 1 Hemoglobin 14.1 g/dL 14.0-18.0 1 Hematocrit 43 % 42-52 1 Mean Corpuscular Volume 95 fL High 80-94 1 Mean Corpuscular Hemoglobin 31 pg 27-31 1 Mean Corpuscular HGB Conc 32 g/dL 31-36 1 Red Cell Distribution Width 14 % 10.5-15 1 Platelet Count 259 10^3/uL 150-450 1 Mean Platelet Volume 9 um3 7.4-10.4 1 Inr/Protime 11/03/2016 Inr 0.86 Low 0.89-1.11 1 Laboratory test finding 11/03/2016 Partial Thrombo 32.4 seconds 26.0- 36.3 1, 2 Time PTT Comp Metabolic Panel 11/03/2016 Sodium 139 mmol/L 133-145 1 Potassium 4.8 mmol/L 3.5-5.0 1 Chloride 104 mmol/L 101-111 1 Co2 Carbon Dioxide 31 mmol/L 22-32 1 Anion Gap 4 mmol/L 2-11 1 Glucose 84 mg/dL 70-100 1 Blood Urea Nitrogen 28 mg/dL High 6-24 1 Creatinine 1.03 mg/dL 0.67-1.17 1 BUN/Creatinine Ratio 27.2 High 8-20 1 Calcium 9.4 mg/dL 8.6-10.3 1 Total Protein 6.8 g/dL 6.4-8.9 1 Albumin 4.1 g/dL 3.2-5.2 1 Globulin 2.7 g/dL 2-4 1 Albumin/Globulin Ratio 1.5 1-3 1 Total Bilirubin 1.00 mg/dL 0.2-1.0 1 Alkaline Phosphatase 51 U/L 34-104 1 Alt 31 U/L 7-52 1 Ast 30 U/L 13-39 1 Egfr Non- 72.9 >60 1 Egfr 93.8 >60 1, 3 Urinalysis Profile 11/03/2016 Urine Color Yellow 1 Urine Appearance Clear 1 Urine Specific Sanford 1.030 1.010-1.030 1 Urine pH 5.0 5-9 1 Urine Urobilinogen Negative Negative 1 Urine Ketones Negative Negative 1 Urine Protein Negative Negative 1 Urine Leukocytes Trace Negative 1 Urine Blood Negative Negative 1 * * Negative 1, 4 Urine Nitrite Negative Negative 1 Urine Bilirubin Negative Negative 1 Urine Glucose Negative Negative 1 Urine White Blood Cell Trace(0-5/hpf) Absent 1 Urine Red Blood Cell Trace(0-2/hpf) Absent 1 Urine Bacteria Absent Absent 1 Urine Squamous Epithelial Cell Present Absent 1 Type & Screen 11/03/2016 Patient Blood Type A Positive 1 Antibody Screen NEGATIVE 1 Urine Culture And Sensitivities 11/03/2016 Urine Culture SEE RESULT BELOW 1, 5 1 AA 11/15 2 AA 11/15 3 Because ethnic data is not always readily available, this report includes an eGFR for both -Americans and non- Americans. The National Kidney Disease Education Program (NKDEP) does not endorse the use of the MDRD equation for patients that are not between the ages of 18 and 70, are , have extremes of body size, muscle mass, or nutritional status, or are non- or non-. According to the National Kidney Foundation, irrespective of diagnosis, the stage of the disease is based on the level of kidney function: Stage Description GFR(mL/min/1.73 m(2)) 1 Kidney damage with normal or decreased GFR 90 2 Kidney damage with mild decrease in GFR 60-89 3 Moderate decrease in GFR 30-59 4 Severe decrease in GFR 15-29 5 Kidney failure <15 (or dialysis) 4 *Ascorbic acid is present which may interfere with detection of blood. 5 SEE RESULT BELOW Name: SEVERIANO CLARK : [address]: Pierre Wooten MD Acct: [id number] Unit: [id number] AGE: 61 Location: [facility] Re11/03/16 SEX: M Status: REG REF SPEC: [id number] CHANELLE: 11/03/16-[address] [facility] [address]: Pierre Wooten MD REQ: [id number] RECD: 11/03/16 STATUS: DOV JONES DR: Thang Tinsley MD _ SOURCE: URINE SPDESC: ORDERED: Urine Culture COMMENTS: HUMBERTO 11/15 QUERIES: Urine Source: Clean Catch Procedure Result Reported Site Urine Culture Final 11/04/16- 1302 ML No Growth (<1,000 CFU/mL) * ML - MAIN LAB (PSC1) . END OF REPORT * ML=Testing performed at Main Lab DEPARTMENT OF PATHOLOGY, [address] [place] [address] Clark Jerry M.D. Director [facility] # [id number] Procedures Date CPT Code Description Status 11/15/2016 71521 TKR Total Knee Replacement Completed 11/15/2016 16680 TKR Total Knee Replacement Completed 11/03/2016 48997 EKG, Interpretation Only Completed 08/20/2015 Inject/Drain Joint/Bursa Major Completed 08/13/2015 Inject/Drain Joint/Bursa Major Completed 08/06/2015 Inject/Drain Joint/Bursa Major Completed 11/02/2013 Inject/Drain Joint/Bursa Major Completed 04/05/2013 Inject/Drain Joint/Bursa Major Completed 04/05/2013 Inject/Drain Joint/Bursa Major Completed Encounters Type Date Location Provider CPT E/M Dx Office Visit 11/16/2017 [facility] Wooten M.D. 89386 Z47.1 1:45p Sadia Z96.651 M17.12 Office Visit 10/06/2016 2:45p [facility] Wooten 00708 M17.11 Sadia Elizondo M17.0 Office Visit 10/08/2015 8:00a [facility] Wooten M.D. 35313 M17.12 [facility] Office Visit 07/09/2015 10:00a [facility] Pierre Wooten M.D. 18078 M17.0 [facility] Office Visit 11/02/2013 8:45a [facility] Yehuda Marquez 64947 715.16 [facility] Office Visit 04/05/2013 8:45a [facility] Pierre Wooten M.D. 87800 715.16 [facility] Office Visit 12/06/2012 9:00a [facility] Pierre Wooten M.D. 63424 715.16 [facility] Plan of Care Future Appointment(s):12/26/2017 10:30 am - HOOD Boyce at [facility]12/26/2017 10:30 am - Pierre Wooten M.D. at [facility]
[2017-12-26] MEDS ORDERED: Dexamethasone IV* 4 MG/ML 1 ML (4 MG) ONE (09:45)
[2017-12-26] MEDS ORDERED: ceFAZolin 2 GM PREMIX (*) 2 GM/50 ML BAG IVPB ONE (09:46)
[2017-12-26] MEDS ORDERED: Famotidine TAB* 20 MG ONE (09:46)
[2017-12-26] MEDS ORDERED: Acetaminophen IV 1GM/100ML * 100 ML ONE (09:46)
[2017-12-26] MEDS ORDERED: celeCOXIB CAP* 100 MG ONE (09:46)
[2017-12-26] MEDS ORDERED: Gabapentin CAP(*) 300 MG ONE (09:46)
[2017-12-26] MEDS ORDERED: Ondansetron INJ* 2 MG/ML VIAL ONE (10:21)
[2017-12-26] MEDS ORDERED: Midazolam* 1 MG/ML 10 ML VIAL (10 MG) ONE (10:21)
[2017-12-26] MEDS ORDERED: fentaNYL* 50 MCG/ML 2 ML VIAL (100 MCG VIAL) ONE (10:21)
[2017-12-26] MEDS ORDERED: Propofol* 10 MG/ML 20 ML BTL IV PUSH ONE ×2 (10:21→12:31)
[2017-12-26] MEDS ORDERED: Bupivacaine 0.5%* 50 ML VIAL ONE ×3 (10:34→11:09)
[2017-12-26] MEDS ORDERED: Lidocaine 1% MPF wEPI 200,000* 30 ML SDV ONE ×2 (10:34→11:09)
[2017-12-26] MEDS ORDERED: Morphine PF AMP (0.5MG/ML)* 5 MG/10 ML AMP ONE (10:44)
[2017-12-26] MEDS ORDERED: Ondansetron INJ* 2 MG/ML VIAL IV PRN (11:56)
[2017-12-26] MEDS ORDERED: Scopolamine 1.5 mg* PATCH TRANSDERM PRN (11:56)
[2017-12-26] MEDS ORDERED: fentaNYL* 50 MCG/ML 2 ML VIAL (100 MCG VIAL) IV PRN (11:56)
[2017-12-26] MEDS ORDERED: HYDROmorphone INJ* 1 MG/ML CARPUJECT SYRINGE IV PRN (11:56)
[2017-12-26] MEDS ORDERED: Nalbuphine* 20 MG/ML 1 ML VIAL IV PRN ×2 (11:56)
[2017-12-26] MEDS ORDERED: DiMENhydriNATE IV* 50 MG/ML VIAL IV PUSH PRN (11:56)
[2017-12-26] MEDS ORDERED: oxyCODONE TAB* 5 MG TAB PO PRN (11:56)
[2017-12-26] MEDS ORDERED: Naloxone* 0.4 MG/ML 1 ML VIAL IV PRN ×2 (11:56)
[2017-12-26] MEDS ORDERED: Bisacodyl SUPP* 10 MG SUPP PR PRN (13:35)
[2017-12-26] MEDS ORDERED: Acetaminophen TAB* 325 MG PO PRN (13:35)
[2017-12-26] MEDS ORDERED: Cyclobenzaprine TAB* 10 MG PO PRN (13:35)
[2017-12-26] MEDS ORDERED: Magnesium Hydroxide LIQ* 30 ML UDC PO PRN (13:35)
[2017-12-26] MEDS ORDERED: ceFAZolin 1 GM in Dextrose (*) 1 GM/50 ML BAG IVPB SCH (14:00)
--- NOTE | 2017-12-26 14:26 | RAD ---
INDICATION: Postoperative left knee arthroplasty COMPARISON: November 16, 2017 TECHNIQUE: Portable AP and crosstable lateral views were obtained. FINDINGS: There is left knee arthroplasty. Both tibial and femoral components appear well seated. There is no overlying cooling jacket. There are anterior skin aimee. IMPRESSION: POSTOPERATIVE LEFT TOTAL KNEE ARTHROPLASTY.
[2017-12-26] MEDS: D5W 1/2 NS 1000 ML BAG* 1,000 ML IV SCH (16:26)
[2017-12-26] MEDS ORDERED: Warfarin TAB(*) 10 MG PO ONE (17:30)
[2017-12-26] MEDS: ceFAZolin 1 GM in Dextrose (*) 1 GM/50 ML BAG IVPB SCH (20:23)
[2017-12-26] MEDS: Heparin VIAL(*) 5000 UNITS/ML VIAL (FIVE THOUSAND) SUBCUT SCH (20:46)
[2017-12-26] MEDS: Magnesium Hydroxide LIQ* 30 ML UDC PO SCH (20:47)
[2017-12-26] MEDS: Docusate CAP* 100 MG PO SCH (20:47)
--- NOTE | 2017-12-27 01:48 | OP ---
DATE OF OPERATION: 12/26/17 - ROOM #343 DATE OF : 51 ATTENDING SURGEON: Pierre Wooten MD. CYLINDER PRESS FEEDER: Franci Benz RPA. ANESTHESIA: Spinal, sedation. PRE-OP DIAGNOSIS: Osteoarthritis, left knee. POST-OP DIAGNOSIS: Osteoarthritis, left knee. OPERATIVE PROCEDURE: Left total knee arthroplasty. ESTIMATED BLOOD LOSS: Less than 50 cc. COMPLICATIONS: None. HARDWARE: Phyllis Persona #9 femur, F tibia 10 mm polyethylene, 35 mm patella. SUMMARY: Mr. Brar is a 62-year-old male who had previously undergone a right total knee arthroplasty. He had done well, getting back to work and all activities. He had very similar end-stage osteoarthritic changes in his left knee where it is bone on bone, and the left knee has been giving him more pain and troubles recently. He had presented to the office very interested in setting up a left total knee arthroplasty. Risks of surgery such as infections , scar formation, stiffness, DVT, pulmonary embolism, hardware failure, and continued pain were some of the risks discussed. He had been declared medically optimized and wished to proceed. DESCRIPTION OF PROCEDURE: The patient was brought to the OR and spinal anesthesia with Duramorph was introduced. Mendez catheter was then placed. Left leg was prepped and then draped. Franci Benz RPA, was present for the entirety of the case, and the case could not have been done without her. After the knee was prepped and draped, Esmarch was used to exsanguinate the leg and the tourniquet was raised. Midline incision was made beginning just medial to the tibial tubercle and carried up along the center of the knee to about 8 cm superior to the patella. Incision was carried down through the skin and subcutaneous fat. Small bleeders encountered were ligated using electrocautery. Extensor mechanism was exposed and a sharp parapatellar arthrotomy was made. Quite a bit of clear yellowish joint fluid was encountered. Fat pad was sharply excised and the soft tissues were sharply elevated from the medial side of the tibia. Patella measured 25 mm in thickness and a nice 10 mm cut was taken. Patella was then easily subluxated laterally. The knee was flexed up. Quite a few osteophytes were clearly evident and these were taken down using the rongeur. Step drill was used to open the femoral canal and intramedullary guide was placed. This had been set for 2 mm of resection along with 2 degrees as I had to recut the femur several times when I had done his right knee. Distal femoral guide was pinned into place and the intramedullary guide was then removed. Femoral cut was taken and it appeared a nice cut was obtained. Femur sized right on an 8. Holes were drilled and 8 was placed, but when the superior hole was run, it was clear that I would notch, so this was moved up twice until the drill came out right on the top side of the cortex. Anterior and posterior femoral cuts followed by chamfer cuts were taken. Attention was turned to the tibia. Step drill was used to open the tibial canal and the intramedullary guide was placed. Outrigger was placed and adjusted until it appeared it would take 2 mm from the worn medial side. Proximal tibial cut was then taken and spacer blocks were used. With the spacer block, it could be seen that on the medial side he was good, but there was very specific play. The tibial cut itself was perfect where the drop sigrid came right down the shaft of the tibia. Therefore, I had a recut on the femoral side. Again, two cuts were taken, as the first time I did not take enough bone from the medial side and then second time enough bone was taken such that the spacer block with a 12 sat very nicely. I was less thrilled about resecting more distal femur. Chamfer cuts were recut using the 9 cutting block as this would give back some of what I had taken. Tibia was trialed with an F and this sat very nicely. This was pinned into place and proximal tibia was drilled and then punched. Similarly, on the femur side, notch cut was finished using the trial and the stud holes were drilled. With a 10 polyethylene it came out nicely into full extension, flexed easily, and was stable throughout. I was very pleased on how this came together. Patella measured at 35 and holes were drilled and a trial was snapped into place. Again, patella tracking was perfect. Trial instrumentation was removed and the knee was copiously pulse lavaged. Cement was being prepared. Tibia, followed by femur and patella were all cemented into place. Excess cement was removed and the cement was allowed to harden. Once the cement had hardened, knee was copiously pulse lavaged. The knee was again trialed with a 10 polyethylene. He had the same wonderful motion and stability. Knee was again pulse lavaged and posterior capsule was injected with 20 cc of a 50:50 mixture of 0.5% Marcaine mixed with 1% lidocaine with epinephrine. Similarly additional 10 cc were placed into each of the gutters and 10 cc into the pouch. The 10 polyethylene was then snapped into place. Knee was again copiously pulse lavaged and the parapatellar arthrotomy was repaired using interrupted #1 Vicryl sutures. Tourniquet was let down and no significant bleeding was encountered. Subcutaneous tissues were approximated with 2-0 Vicryl. Skin was closed using aimee. Sterile dressing and Cryo/Cuff were applied in the OR. The patient was then awakened and stable on transfer to the recovery room. [id number]/CPS #: [id number] MTDD
[2017-12-27] MEDS: D5W 1/2 NS 1000 ML BAG* 1,000 ML IV SCH (02:39)
[2017-12-27] MEDS ORDERED: diPHENhydraMINE IV* 50 MG/ML 1 ml VIAL (BENADRYL) IV PRN (03:01)
[2017-12-27] MEDS ORDERED: oxyCODONE/Acetamin 5/325 MG* TAB PO PRN (03:01)
[2017-12-27] MEDS ORDERED: Morphine INJ* 2 MG/ML 1 ML CARPUJECT IV PRN (03:01)
[2017-12-27] MEDS ORDERED: Morphine VIAL* 4 MG/ML VIAL (1 ml vial) IV PRN (03:01)
[2017-12-27] MEDS ORDERED: Ondansetron TAB* 4 MG PO PRN (03:01)
[2017-12-27] MEDS ORDERED: Ondansetron INJ* 2 MG/ML VIAL IV PRN (03:01)
[2017-12-27] MEDS ORDERED: diPHENhydraMINE PO* 25 MG PO PRN (03:01)
[2017-12-27] MEDS: ceFAZolin 1 GM in Dextrose (*) 1 GM/50 ML BAG IVPB SCH ×2 (04:05→11:28)
[2017-12-27 06:28] LABS: Hematocrit 35 % (42-52); Hemoglobin 11.9 g/dl (14.0-18.0); Mean Platelet Volume 9.4 um3 (7.4-10.4); Platelet Count 219 10^3/ul (150-450)
[2017-12-27 06:41] LABS: EGFR Non-African American 89.5 (>60)
[2017-12-27 06:47] LABS: INR 1.08 (0.77-1.02)
[2017-12-27] MEDS: oxyCODONE/Acetamin 5/325 MG* TAB PO PRN ×4 (07:25→23:24)
[2017-12-27] MEDS: Docusate CAP* 100 MG PO SCH ×2 (08:59→21:33)
[2017-12-27] MEDS: Magnesium Hydroxide LIQ* 30 ML UDC PO SCH ×2 (08:59→21:33)
[2017-12-27] MEDS: Heparin VIAL(*) 5000 UNITS/ML VIAL (FIVE THOUSAND) SUBCUT SCH ×2 (08:59→21:33)
[2017-12-27] MEDS ORDERED: Polyethylene Glycol 3350* 17 GM PACKET PO PRN (09:29)
--- NOTE | 2017-12-27 09:37 | PN ---
Progress Note - Progress Note Date of Service: 12/27/17 SOAP: Subjective: []Patient seen OOB in chair. He feels well with 2-3/10 pain of his left knee. Denies chest pain, shortness of breath, dizziness, lightheadedness, nausea or vomiting. His BP has been low to 93/58 this morning but he has not been symptomatic. He ate breakfast and is drinking well. Objective: [] Vital Signs Temp 98.1 F 12/27/17 07:25 Pulse 47 12/27/17 07:25 Resp 16 12/27/17 07:32 BP 93/58 12/27/17 07:25 Pulse Ox 99 12/27/17 08:21 Intake & Output 12/26/17 12/27/17 12/27/17 18:59 06:59 18:59 Intake Total 1600 3019 Output Total 250 1675 Balance 1350 1344 Weight 246 lb 6.4 oz Intake: IV Fluids 1600 975 D5W 1/2 NS 975 LR 1600 IVPB 54 ABX - CEFAZOLIN 54 Oral 1989 Output: Mendez 200 1675 Estimated Blood Loss 50 Other: # Bowel Movements 0 Laboratory Last Values Hgb 11.9 g/dl (14.0-18.0) L 12/27/17 05:38 Hct 35 % (42-52) L 12/27/17 05:38 Plt Count 219 10^3/ul (150-450) 12/27/17 05:38 MPV 9.4 um3 (7.4-10.4) 12/27/17 05:38 INR (Anticoag Therapy) 1.08 (0.77-1.02) H 12/27/17 05:38 Sodium 137 mmol/L (139-145) L 12/27/17 05:38 Potassium 4.0 mmol/L (3.5-5.0) 12/27/17 05:38 Chloride 107 mmol/L (101-111) 12/27/17 05:38 Carbon Dioxide 24 mmol/L (22-32) 12/27/17 05:38 Anion Gap 6 mmol/L (2-11) 12/27/17 05:38 BUN 12 mg/dL (6-24) 12/27/17 05:38 Creatinine 0.86 mg/dL (0.67-1.17) 12/27/17 05:38 Est GFR ( Amer) 115.1 (>60) 12/27/17 05:38 Est GFR (Non-Af Amer) 89.5 (>60) 12/27/17 05:38 BUN/Creatinine Ratio 14.0 (8-20) 12/27/17 05:38 Glucose 123 mg/dL (70-100) H 12/27/17 05:38 Calcium 8.1 mg/dL (8.6-10.3) L 12/27/17 05:38 General: Well appearing, NAD. Calm and cooperative. LLE: Dressing of left knee CDI without surrounding erythema. Thigh is soft and nontender. DF/PF intact. Sensation intact and capillary refill less than two seconds distally. DP 1+. Hyperpigmentation from healed venous stasis ulcer just superior to medial malleolus BL LE: Calves supple and nontender without erythema, edema or palpable cords. Assessment: []POD 1 s/p left total knee arthroplasty, Dr Wooten 12/26 Plan: []WBAT PT/OT Lovenox, coumadin 6 mg today Restart home medications of prilosec and miralax per patient request, refuses other bowel meds
[2017-12-27] MEDS: oxyCODONE TAB* 5 MG TAB PO PRN ×3 (10:35→21:31)
[2017-12-27] MEDS ORDERED: Warfarin TAB(*) 6 MG PO ONE (17:00)
[2017-12-27] MEDS: Omeprazole CAP* 20 MG PO SCH (21:32)
[2017-12-28] MEDS: oxyCODONE TAB* 5 MG TAB PO PRN ×4 (01:24→16:06)
[2017-12-28] MEDS: oxyCODONE/Acetamin 5/325 MG* TAB PO PRN ×3 (03:29→13:03)
[2017-12-28 07:14] LABS: Hematocrit 34 % (42-52); Hemoglobin 11.7 g/dl (14.0-18.0); Mean Platelet Volume 9.2 um3 (7.4-10.4); Platelet Count 211 10^3/ul (150-450)
[2017-12-28] MEDS: Magnesium Hydroxide LIQ* 30 ML UDC PO SCH (08:34)
[2017-12-28] MEDS: Docusate CAP* 100 MG PO SCH (08:34)
[2017-12-28] MEDS: Omeprazole CAP* 20 MG PO SCH (08:36)
[2017-12-28] MEDS: Heparin VIAL(*) 5000 UNITS/ML VIAL (FIVE THOUSAND) SUBCUT SCH (09:15)
--- NOTE | 2017-12-28 12:40 | PN ---
Progress Note - Progress Note Date of Service: 12/28/17 SOAP: Subjective: []Patient seen at bedside. He is feeling well with 2/10 pain when alternating 2 tabs percocet 5/325 mg q 4 hours with oxycodone 10 mg Q 4 hours. He is very concerned about pain control but otherwise feels well. Denies CP, SOB, fever, chills, nausea. Objective: [] Vital Signs Temp 98.9 F 12/28/17 11:03 Pulse 61 12/28/17 11:03 Resp 18 12/28/17 12:35 BP 131/60 12/28/17 11:03 Pulse Ox 97 12/28/17 11:03 Intake & Output 12/27/17 12/28/17 12/28/17 18:59 06:59 18:59 Intake Total 0 1120 480 Output Total 300 Balance 0 820 480 Intake: Oral 0 1120 480 Output: Urine 300 Other: Estimated Void Medium Large Medium # Bowel Movements 0 # Voids 1 3 Laboratory Last Values Hgb 11.7 g/dl (14.0-18.0) L 12/28/17 06:06 Hct 34 % (42-52) L 12/28/17 06:06 Plt Count 211 10^3/ul (150-450) 12/28/17 06:06 MPV 9.2 um3 (7.4-10.4) 12/28/17 06:06 INR (Anticoag Therapy) 2.00 (0.77-1.02) H 12/28/17 06:07 Sodium 137 mmol/L (139-145) L 12/27/17 05:38 Potassium 4.0 mmol/L (3.5-5.0) 12/27/17 05:38 Chloride 107 mmol/L (101-111) 12/27/17 05:38 Carbon Dioxide 24 mmol/L (22-32) 12/27/17 05:38 Anion Gap 6 mmol/L (2-11) 12/27/17 05:38 BUN 12 mg/dL (6-24) 12/27/17 05:38 Creatinine 0.86 mg/dL (0.67-1.17) 12/27/17 05:38 Est GFR ( Amer) 115.1 (>60) 12/27/17 05:38 Est GFR (Non-Af Amer) 89.5 (>60) 12/27/17 05:38 BUN/Creatinine Ratio 14.0 (8-20) 12/27/17 05:38 Glucose 123 mg/dL (70-100) H 12/27/17 05:38 Calcium 8.1 mg/dL (8.6-10.3) L 12/27/17 05:38 General: Well appearing, NAD. Calm and cooperative. LLE: Dressing of left knee changed, incision with well approximated wound edges , CDI without surrounding erythema. Thigh is soft and nontender. DF/PF intact. Sensation intact and capillary refill less than two seconds distally. DP 2+. Hyperpigmentation from healed venous stasis ulcer just superior to medial malleolus BL LE: Calves supple and nontender without erythema, edema or palpable cords. Assessment: []POD 2 s/p left total knee arthroplasty, Dr Wooten 12/26 Plan: []WBAT PT/OT Stop heparin, coumadin 1 mg today Patient concerned over pain control, DC home later today or tomorrow
[2017-12-28 15:38] VITALS: BP 116/65
[2017-12-28] MEDS ORDERED: Warfarin TAB(*) 1 MG PO ONE (17:00)
[2017-12-28] MEDS ORDERED: Warfarin TAB(*) 2 MG PO ONE (17:00)
--- NOTE | 2017-12-28 22:26 | DS ---
DISCHARGE SUMMARY: DATE OF ADMISSION: 12/26/17 Same day he underwent a left total knee arthroplasty. DATE OF DISCHARGE: 12/28/17 PROVIDER: Pierre Wooten MD * (DICTATED BY HOOD CHAO) QA SOFTWARE TESTER: HOOD Boyce OPERATIVE PROCEDURE: Left total knee arthroplasty. HISTORY: Mr. Brar is a 62-year-old male who had undergone a right total knee arthroplasty which he did well with. In his left knee, he had similar end- stage osteoarthritic changes and has elected to undergo a left total knee arthroplasty. HOSPITAL COURSE: The patient was admitted to [facility] on . He underwent a left total knee arthroplasty without complication. He recovered briefly in the PACU and then was transferred to the short-stay surgical unit in stable condition. He was seen on postop day 1, feeling well, no acute distress, calm, cooperative. Dressing in the left knee clean, dry, and intact without surrounding erythema. Thigh was soft and nontender. Dorsiflexion and plantar flexion was intact. Sensation intact. Capillary refill is less than 2 seconds distally. Dorsalis pedis pulse 1+. Hyperpigmentation from healed venous stasis ulcer just superior to medial malleolus on the left lower extremity. Calf supple, nontender, without erythema , edema or palpable cords. Postop day 2, the patient is well appearing, in no acute distress. Dressing of the left knee was changed. Incision clean, dry, and intact with well-approximated wound edges. Thigh soft, nontender. Dorsiflexion and plantar flexion intact. Sensation is intact. Capillary refill is less than 2 seconds distally. Dorsalis pedis pulse 2+. LABORATORY DATA: The patient's laboratory studies showed hemoglobin 11.7, hematocrit 34, INR 2.0. PHYSICAL EXAMINATION: Vital Signs: Temperature 98.9, pulse 61, respiratory rate 18, blood pressure 131/60, pulse ox 97%. The patient was deemed to be medically and orthopedically stable for discharge home. DISCHARGE MEDICATIONS: Resume: 1. Multivitamin. 2. MiraLAX [id number]. 3. Omeprazole 20 mg p.o. b.i.d. 4. [place]-3 fatty acids with fish oil. 5. Glucosamine and chondroitin. 6. Ginkgo biloba. 7. Lactobacillus acidophilus. New medications for home: 1. Acetaminophen 650 mg p.o. q.4 hours p.r.n., max daily dose of 4000 mg from all sources. 2. Docusate 100 mg p.o. b.i.d. p.r.n. 3. Oxycodone 5 mg tab 1 to 2 tabs every 4 to 6 hours as needed, max daily dose of 10 tablets to equal 30 mg. 4. Oxycodone/acetaminophen 5/325 mg 1 to 2 tabs every 4 to 6 hours p.r.n., max daily dose of 10. 5. Warfarin 2 mg tablets, 1 to 3 tabs daily depending on INR dosing. DISCHARGE PLAN: Weightbearing as tolerated. Okay to shower after 12/29/17. Do not submerge the wound. Continue physical therapy, occupational therapy. Visiting home nurse to remove aimee in 10 to 12 days and do wound checks as well as do blood draws for INR on Mondays and . Coumadin dosing 2 mg on 12/28/17. Recheck INR on 12/29/17. Pain control with Percocet 5/325 1 to 2 tabs every 4 to 6 hours as needed for pain, not to exceed 10 tabs per day, as well as oxycodone 5 mg tabs 1 to 2 tabs every 4 to 6 hours as needed for pain, not to exceed 6 tablets per day or 30 mg per day. Tabs of oxycodone may be taken for breakthrough pain alternating with Percocet as needed. Please wean off the narcotics as soon as the allows. Hold Percocet and oxycodone for sedation and contact medical provider. Follow up with Dr. Wooten in 4 weeks. Call for an appointment. HOOD CHAO [id number] #: [id number] [facility]
== END 2017-12-28 16:33 | disposition home health service (06) | DRG 302 ==
LOC: AA 09:10 → SSU 16:18
PROVIDERS: ADMIT Orthopaedic Surgery; ATTEND Orthopaedic Surgery
PROC: 0SRD0J9 Replacement of Left Knee Joint with Synthetic Substitute, Cemented, Open Approach (ICD-10-PCS; principal; 2017-12-26 10:30)
DX: M17.12 Unilateral primary osteoarthritis, left knee (principal); L40.9 Psoriasis, unspecified; K21.9 Gastro-esophageal reflux disease without esophagitis; Z96.651 Presence of right artificial knee joint; M25.762 Osteophyte, left knee; G47.33 Obstructive sleep apnea (adult) (pediatric); E66.9 Obesity, unspecified; Z68.32 Body mass index [BMI] 32.0-32.9, adult; Z79.01 Long term (current) use of anticoagulants
CPT/HCPCS: 36415; 80048; 85014; 85018; 85049; 85610; 94760; A9270-GY; C1776; J0690; J1100; J1644; J2001; J2250; J2405; J2704; J3010

== ENCOUNTER 2018-01-02 20:30 | Emergency (ER) | payer BC ==
[2018-01-02 21:23] LABS: ABS Basophils 0.1 10^3/ul (0-0.2); ABS Eosinophils 0.2 10^3/ul (0-0.6); ABS Lymphocytes 1.7 10^3/ul (1.0-4.8); ABS Neutrophils 6.9 10^3/ul (1.5-7.7); ABS Nucleated RBC 0 10^3/ul; Eosinophil % 2.5 % (0-6); Hematocrit 37 % (42-52); Hemoglobin 12.5 g/dl (14.0-18.0); Lymphocyte % 16.8 % (25-47); Mean Corpuscular HGB Conc 34 g/dl (31-36); Mean Corpuscular Hemoglobin 32 pg (27-31); Mean Corpuscular Volume 93 fL (80-94); Mean Platelet Volume 7.8 um3 (7.4-10.4); Nucleated Red Blood Cells % 0.1; Platelet Count 389 10^3/ul (150-450); Red Blood Count 3.94 10^6/ul (4.0-5.4); Red Cell Distribution Width 14 % (10.5-15); White Blood Count 9.9 10^3/ul (3.5-10.8)
[2018-01-02 21:37] LABS: EGFR Non-African American 77.9 (>60)
[2018-01-02 21:39] LABS: INR 1.53 (0.77-1.02)
--- NOTE | 2018-01-02 22:04 | RAD ---
Indication: Left lower extremity pain. Duplex Doppler sonography of the deep venous system of the left lower extremity deep venous system was performed. Bilaterally the common femoral veins appear patent and compressible. Left proximal greater saphenous vein, proximal deep femoral vein, femoral vein, popliteal vein, posterior tibial veins and peroneal veins appear patent and compressible. IMPRESSION: NO EVIDENCE OF DEEP VENOUS THROMBOSIS IS IDENTIFIED.
[2018-01-02 22:21] VITALS: BP 124/74
--- NOTE | 2018-01-03 00:04 | ED ---
Velasquez Wells Nikita, scribed for Kelsea Aldridge MD on 01/02/18 at 2054 . ED Suture/Wound Check - HPI Summary HPI Summary: The pt is 62 y/o male with a chief complaint of left knee pain s/p surgical operation (Left knee replacement). Left knee replacement surgery was done 1 week ago (12/26/17) and pt reports that the surgery was successful. PT is undergoing physical therapy and states the first onset of pain was on Tuesday () which was described as a "quad soreness." From 12/29/17 to 01/02/18, the pt stated the pain developed into a "calf" pain that was described similar to a "pulled" muscle. Pt also reports of redness on the left knee and as well as some areas being "yellow." We reviewed the medication hx of the pt and the pt is on warfarin and oxycodone and omiprazole. The kidney is reported to be functioning normally as per patient. Pt also denies chest pain and SOB. PMHx includes right knee replacement. FHx blood clots in the mother's side as well as TIA and stroke. No drainage reported. - History Of Current Complaint Chief Complaint: EDExtremityLower Stated Complaint: LT LEG PAIN Time Seen by Provider: 01/02/18 20:41 Hx Obtained From: Patient, Family/Gas Tender Onset/Duration: Gradual Onset, Lasting Weeks - 1 week Severity: Moderate Pain Intensity: 5 Pain Scale Used: 0-10 Numeric Procedure Type: Left knee replacement Surgery Date: 12/26/17 - Allergies/Home Medications Allergies/Adverse Reactions: Allergies Allergy/AdvReac Type Severity Reaction Status Date / Time No Known Allergies Allergy Verified 12/26/17 09:42 PMH/Surg Hx/FS Hx/Imm Hx Endocrine/Hematology History: Denies: Hx Sickle Cell Disease Respiratory History: Reports: Hx Sleep Apnea - NO LONGER USES A CPAP GI History: Reports: Hx Gastroesophageal Reflux Disease, Hx Hiatal Hernia - HAD SURGERY FOR, Other GI Disorders - OCCASIONAL GASTRITIS Musculoskeletal History: Reports: Hx Arthritis - BILATERAL KNEES, Other Musculoskeletal History - LONG HX OF KNEE PAIN Sensory History: Reports: Hx Contacts or Glasses - GLASSES Denies: Hx Hearing Aid Opthamlomology History: Reports: Hx Contacts or Glasses - GLASSES Psychiatric History: Denies: Hx of Violent Episodes Against Others, Other Psychiatric Issues/ Disorders - Cancer History Hx Chemotherapy: No - Surgical History Surgery Procedure, Year, and Place: HIATAL HERNIA REPAIR AT AGE 7. HIATAL HERNIA REPAIR - 10 YEARS AGO knee replaced r. LEFT KNEE REPLACEMENT - 12/26/17 Hx Anesthesia Reactions: No Infectious Disease History: No Infectious Disease History: Denies: Hx Clostridium Difficile, Hx Hepatitis, Hx Human Immunodeficiency Virus (HIV), Hx of Known/Suspected MRSA, Hx Shingles, Hx Tuberculosis, Hx Known/ Suspected VRE, Hx Known/Suspected VRSA, History Other Infectious Disease, Traveled Outside the [place] in Last 30 Days - Family History Family History: FHX blood clots on mother's side. TIA and CVA - Social History Alcohol Use: Rare Alcohol Amount: 3 PER WEEK Substance Use Type: Reports: None Smoking Status (MU): Never Smoked Tobacco Have You Smoked in the Last Year: No Review of Systems Constitutional: Negative Eyes: Negative ENT: Negative Negative: Chest Pain Negative: Shortness Of Breath Gastrointestinal: Negative Genitourinary: Negative Musculoskeletal: Other - Left knee pain, "calf pain" and "quad" soreness Skin: Other - redness Neurological: Negative Psychological: Normal All Other Systems Reviewed And Are Negative: Yes Physical Exam - Summary Physical Exam Summary: Appearance: Ill-appearing, moderate pain distress, Well-nourished Skin: Warm, color reflects adequate perfusion Head: Normal Head/Face inspection Eyes: Conjunctiva clear ENT: Normal inspection Neck: Supple, no nodes, no JVD. Respiratory: Lungs clear, Normal breath sounds, no respiratory distress Cardio: RRR, No murmur, pulses normal, brisk capillary refill Abdomen: soft, nontender Bowel sounds: present Musculoskeletal: Left leg with aimee anterior knee, dry intact, minimal redness, no cellulitis, some swelling of the entire left leg. Ecchymosis of the medial ankle. Psychological: Normal Neuro: Alert, muscle tone normal, no focal deficit Triage Information Reviewed: Yes Vital Signs On Initial Exam: Initial Vitals Temp Pulse Resp BP Pulse Ox 98 F 71 20 113/60 97 01/02/18 20:34 01/02/18 20:34 01/02/18 20:34 01/02/18 20:34 01/02/18 20:34 Vital Signs Reviewed: Yes Diagnostics - Vital Signs Vital Signs Temp Pulse Resp BP Pulse Ox 01/02/18 20:34 98 F 71 20 113/60 97 - Laboratory Result Diagrams: 01/02/18 21:12 01/02/18 21:12 Lab Statement: Any lab studies that have been ordered have been reviewed, and results considered in the medical decision making process. - Ultrasound No standard instances Ultrasound Interpretation Completed By: Radiologist - US reveals NO EVIDENCE OF DEEP VENOUS THROMBOSIS IS IDENTIFIED as per radiologist. The ED Physician has reviewed the radiology report. Re-Evaluation - Re-Evaluation 2200 Re-Evaluation Time: 22:00 Comment: We discussed plan with pt. The pt is agreeable to discharge. Course/Dx - Course Course Of Treatment: The pt is a 62 y/o male with chief complaint of left knee pain s/p surgery (left knee replacement). The pt recieved and US (venous doplar study) upon entering the [facility]. The dx will be left left pain and subtherapeutic INR. He will be discharged home. - Clinical Impression Provider Diagnoses: Subtherapeutic international normalized ratio (INR), Left leg pain Discharge - Sign-Out/Discharge Documenting (check all that apply): Discharge/Admit/Transfer - Discharged home - Discharge Plan Condition: Stable Disposition: HOME Referrals: Mariely Espinal MD [Primary Care Provider] - The documentation as recorded by the Velasquez gauthier Nikita accurately reflects the service I personally performed and the decisions made by , Kelsea Aldridge MD.
== END 2018-01-02 22:21 | disposition home or self-care (01) ==
LOC: ED 20:30
DX: R79.1 Abnormal coagulation profile (principal); Z79.01 Long term (current) use of anticoagulants; M79.662 Pain in left lower leg; Z96.652 Presence of left artificial knee joint; K21.9 Gastro-esophageal reflux disease without esophagitis; K44.9 Diaphragmatic hernia without obstruction or gangrene
CPT/HCPCS: 36415; 80053; 83735; 85025; 85610; 86140; 99283